=== PATIENT | male | born 1965 | race Caucasian/White ===

== ENCOUNTER 2017-01-28 10:14 | Outpatient (CLI) ==
[2015-10-31 02:28] VITALS: BMI 45.8
--- NOTE | 2017-01-28 11:06 | US ---
EXAM: Bilateral lower extremity venous Doppler History: Bilateral leg pain. Technique: Multiple sonographic images through the bilateral lower extremities were obtained. [place] r duplex Doppler was used to interrogate vascular flow. Findings: The bilateral common femoral, greater saphenous, profunda, fissural femoral, popliteal, p eroneal, posterior tibial and anterior tibial veins and a straight spontaneous flow with normal comp ression and normal augmentation. Impression: Sonographic evidence for deep venous thrombosis.
== END 2017-01-28 10:15 | disposition home or self-care (01) ==
LOC: RAD 10:14
PROVIDERS: ATTEND Surgery
DX: M79.605 Pain in left leg (principal); M79.604 Pain in right leg

== ENCOUNTER 2017-06-30 13:01 | Outpatient (CLI) ==
[2015-10-31 02:28] VITALS: BMI 45.8
[2017-06-30 13:09] LABS: BASOPHILS % (AUTO) 0.4 % (0.0-3.0); EOSINOPHILS # (AUTO) 0.3 K/ul (0.0-0.7); EOSINOPHILS % (AUTO) 3.2 % (0.0-7.0); HEMATOCRIT 46.2 % (42.0-52.0); HEMOGLOBIN 15.2 g/dl (14.0-18.0); IMMATURE GRANULOCYTE % (AUTO) 0.4 % (0.0-5.0); LYMPHOCYTES % (AUTO) 34.9 (10.0-50.0); MEAN CORPUSCULAR HEMOGLOBIN 28.8 pg (27.0-31.0); MEAN CORPUSCULAR HGB CONC 32.9 (31.8-35.4); MEAN CORPUSCULAR VOLUME 87.5 fl (80.0-94.0); MONOCYTES # (AUTO) 0.9 K/uL (0.4-2.0); MONOCYTES % (AUTO) 10.1 (0-10); NEUTROPHILS # (AUTO) 4.3 K/ul (2.0-6.9); PLATELET COUNT 231 10^3/uL (140-440); RED BLOOD COUNT 5.28 10^6/ul (4.70-6.10); WHITE BLOOD COUNT 8.45 K/ul (4.2-10.2)
[2017-06-30 13:41] LABS: ALBUMIN 3.6 g/dL (3.4-5.0); ALBUMIN/GLOBULIN RATIO 0.82; ANION GAP 12.9; BILIRUBIN,TOTAL 0.7 mg/dL (0.00-1.20); BUN/CREATININE RATIO 16.66; CALCIUM 9.5 mg/dL (8.2-10.2); CHOL/HDL RATIO 6.8 (4.5-6.4); CREATININE 0.84 mg/dL (0.60-1.10); POTASSIUM 3.9 mmol/L (3.5-5.1)
== END 2017-06-30 13:02 | disposition home or self-care (01) ==
LOC: LAB 13:01
PROVIDERS: ATTEND Emergency Medicine
DX: G47.33 Obstructive sleep apnea (adult) (pediatric) (principal); J44.1 Chronic obstructive pulmonary disease with (acute) exacerbation; F32.9 Major depressive disorder, single episode, unspecified; J06.9 Acute upper respiratory infection, unspecified; E66.9 Obesity, unspecified; Z68.35 Body mass index [BMI] 35.0-35.9, adult
CPT/HCPCS: 36415; 80053; 80061; 84443; 85025; 87651; 87880

== ENCOUNTER 2017-07-07 11:59 | Outpatient (CLI) ==
[2015-10-31 02:28] VITALS: BMI 45.8
--- NOTE | 2017-07-07 13:22 | DI ---
EXAM: Lumbar spine three view HISTORY: Lumbar stenosis COMPARISON: 05/03/2012 TECHNIQUE: Three views lumbar spine were performed FINDINGS: The sacroiliac joints intact. Sacral arcuate intact. Vertebral bodies normal height. No fracture. No subluxation. Multilevel marginal osteophyte formation. Multilevel intervertebral dis c space narrowing with moderate intervertebral disc is narrowing of L5 - S1. Multilevel facet arthro sis. Partial lumbarization S1. IMPRESSION: Chronic discogenic degenerative disease and facet arthrosis.
--- NOTE | 2017-07-07 21:22 | MRI ---
EXAM: MRI lumbar spine without IV contrast. DATE: 07 July 2017. HISTORY: Lumbar spinal stenosis and degenerative disc disease. TECHNIQUE: Sagittal and axial T1W and T2W sequences of the lumbar spine along with sagittal IR and c oronal T2W sequences were obtained using 1.2 [place] magnet. No IV contrast. COMPARISON: LS spine series 07 July 2017. MRI L-spine [address] abdomen/pelvis 2015. FINDINGS: There are five [id number] lumbar vertebra. No lumbar scoliosis is evident. A 2 mm a nterior subluxation of S1 relative to L5 is noted. No other subluxation, acute fracture, osseous mal ignancy, or pars interarticularis defect is demonstrated. Lumbar vertebra are normal in height. Bon e marrow signal is overall normal. T2W/T1W bright, 8.2 mm focus in the L3 body and similar 11 mm foc us in the L4 body are likely benign hemangiomas. Tiny, chronic Schmorl's nodes are revealed at T11, T12, L1, and L3. Disc desiccation and moderate disc space narrowing seen at L5-S1. No acute sacral fracture or stress reaction is evident. SI joints are unremarkable. Conus medullaris terminates at L1. No cord edema, syrinx, myelomalacia, or neoplasm is demonstrated. No retroperitoneal lymphadenopathy, paraspinal mass, or aortic aneurysm is detected. Psoas muscles a re normal. Mild bilateral posterior paraspinal muscle atrophy is seen inferiorly. Right lobe liver is greater than 19 cm in length, without distinct focal mass. Visible portion of the spleen measures greater than 15 cm in length. No adrenal or right renal lesion is seen. A prominent left extrarenal pelvis is suspected. The kidneys and other solid organs of the abdomen are not optimally visualized due to breathing motion artifacts. Segmental analysis: T11-12: Normal. T12-L1: Normal. L1-2: Normal. L2-3: Normal. L3-4: Minor left foraminal narrowing is due to minor facet arthropathy. No central canal stenosis. L4-5: Normal. L5-S1: Minimal anterior subluxation of L5, small concentric disc bulge, bilateral post lateral spond ylotic ridges at the L5 inferior endplate, and minor facet arthropathy cause moderate bilateral bon inal stenoses. Each L5 nerve root contacts disc bulges / osteophytes near the lateral margin of the foramen. IMPRESSIONS: 1. L-spine minor facet arthropathy and DDD similar to April 2012. 2. Moderate bilateral foraminal stenoses and compromise of each L5 nerve root near the foramen - - m zohreh L5-S1 a likely level to be symptomatic. 3. No lumbar spine central canal stenosis. 4. Benign hemangiomas in L3 and L4 vertebra. 5. T - L-spine small, chronic Schmorl's nodes. 6. Mild hepatosplenomegaly - etiology uncertain. 7. Prominent left extrarenal pelvis (benign).
== END 2017-07-07 12:00 | disposition home or self-care (01) ==
LOC: RAD 11:59
PROVIDERS: ATTEND Pain Medicine Interventional Pain Medicine
DX: M48.061 Spinal stenosis, lumbar region without neurogenic claudication (principal); M48.07 Spinal stenosis, lumbosacral region; M51.36 Other intervertebral disc degeneration, lumbar region; M51.37 Other intervertebral disc degeneration, lumbosacral region

== ENCOUNTER 2017-08-09 09:56 | Inpatient (IN) ==
[2017-08-09] MEDS: XOPENEX 1.25 MG NEB SCH ×2 (11:10→16:44)
[2017-08-09 11:19] VITALS: BMI 51.0
[2017-08-09] MEDS: ROCEPHIN 1 GM in SODIUM CHLORIDE 50 ML IV SCH (12:15)
[2017-08-09] MEDS: SODIUM CHLORIDE 1,000 ML IV SCH (12:15)
[2017-08-09] MEDS: ZITHROMAX PO SCH (12:16)
[2017-08-09] MEDS: TAMIFLU PO SCH (12:17)
[2017-08-09] MEDS: LOVENOX SUBCUT SCH (12:27)
[2017-08-09] MEDS ORDERED: ZOFRAN 4 MG/2 ML ONE (12:47)
[2017-08-09] MEDS ORDERED: PROTONIX IV ONE (12:47)
[2017-08-09] MEDS: ZOFRAN 4 MG/2 ML IVP PRN (12:50)
[2017-08-09] MEDS: PROTONIX IV IVP SCH (12:52)
--- NOTE | 2017-08-09 12:53 | CT ---
Exam: CT of the chest without intravenous contrast. Comparison: Chest x-ray performed on 01/12/2014. CT chest performed 04/21/2013. Reason for exam: Short of breath. FINDINGS: Incidental note of some mild soft tissue asymmetry in the partially imaged upper airway on axial image #1. Image interpretation is limited by the lack of intravenous contrast administration. Patchy ground-glass is seen in the left apex. There is a 4.5 mm nodule in the right lower lobe on axial image number 43. No pleural effusion, or f ocal consolidation is seen in the lung bases. There is no obvious pneumothorax. Nonspecific prominence of the mediastinal lymph nodes measuring up to 2.3 cm. Patchy ground-glass and tree in bud opacities are seen in the right upper lobe. Degenerative disease is seen in the thoracic spine. No suspicious appearing osteoblastic or osteolytic lesions. Impression: 1. Patchy ground-glass and tree in bud opacities are seen in the right upper and left upper lobes. Imaging findings are most consistent with inflammation or early infection. Repeat imaging is recomme nded to document resolution. 2. 4.5 mm nodule in the right lower lobe. Recommend 6-month follow-up CT to document stability. 3. Nonspecific enlargement of the mediastinal lymph nodes. 4. Incidental note of soft tissue asymmetry in the partially imaged upper airway on axial image #1. If clinical concern exists, further evaluation may be performed.
[2017-08-09] MEDS: SOLU-MEDROL 125 MG IVP SCH ×2 (13:00→20:57)
[2017-08-09] MEDS ORDERED: PERCOCET 10-325 PO PRN (14:59)
[2017-08-09] MEDS ORDERED: NON-FORMULARY MEDICATION (Hydroxyzine Hcl [Hydroxyzine Hcl] 50 MG) PO PRN (14:59)
[2017-08-09] MEDS ORDERED: ATARAX PO PRN (15:13)
[2017-08-09] MEDS: NORCO 10-325 PO PRN (16:26)
[2017-08-09] MEDS: DALIRESP PO SCH (16:28)
[2017-08-09] MEDS: LIPITOR PO SCH (16:29)
[2017-08-09] MEDS: ZANTAC PO SCH (16:30)
[2017-08-09] MEDS: SINGULAIR PO SCH (16:30)
[2017-08-09] MEDS ORDERED: TORADOL IVP STA (16:56)
[2017-08-09] MEDS: SYMBICORT 160-4.5 MCG INHALER IH SCH (20:57)
[2017-08-09] MEDS: NEURONTIN PO SCH (20:57)
[2017-08-09] MEDS: REQUIP PO SCH (20:58)
[2017-08-09] MEDS ORDERED: ROPINIROLE HCL 2 MG PO SCH (21:00)
[2017-08-10] MEDS: XOPENEX 1.25 MG NEB SCH ×5 (01:35→23:01)
[2017-08-10] MEDS: SODIUM CHLORIDE 1,000 ML IV SCH ×2 (03:23→16:07)
[2017-08-10] MEDS: TYLENOL PO PRN ×2 (03:29→19:22)
[2017-08-10] MEDS: ZANTAC PO SCH ×2 (05:33→16:08)
[2017-08-10] MEDS: SOLU-MEDROL 125 MG IVP SCH ×3 (05:33→20:14)
[2017-08-10] MEDS: PROTONIX IV IVP SCH (09:21)
[2017-08-10] MEDS: ZOFRAN 4 MG/2 ML IVP PRN (09:23)
[2017-08-10] MEDS: ZITHROMAX PO SCH (09:25)
[2017-08-10] MEDS: NON-FORMULARY MEDICATION (Umeclidinium Bromide [Incruse Ellipta] 62.5 MCG) IH SCH (09:26)
[2017-08-10] MEDS: TAMIFLU PO SCH (09:27)
[2017-08-10] MEDS: LOVENOX SUBCUT SCH (09:28)
[2017-08-10] MEDS: SYMBICORT 160-4.5 MCG INHALER IH SCH ×2 (09:38→20:14)
[2017-08-10] MEDS: DALIRESP PO SCH (09:38)
[2017-08-10] MEDS: LIPITOR PO SCH (09:38)
[2017-08-10] MEDS: SINGULAIR PO SCH (09:38)
[2017-08-10] MEDS: ROCEPHIN 1 GM in SODIUM CHLORIDE 50 ML IV SCH (09:39)
[2017-08-10] MEDS: NEURONTIN PO SCH (20:14)
[2017-08-10] MEDS: REQUIP PO SCH (20:14)
[2017-08-10] MEDS: NORCO 10-325 PO PRN (23:32)
[2017-08-11] MEDS: SODIUM CHLORIDE 1,000 ML IV SCH ×2 (04:48→18:35)
[2017-08-11] MEDS: SOLU-MEDROL 125 MG IVP SCH ×3 (04:49→21:10)
[2017-08-11] MEDS: XOPENEX 1.25 MG NEB SCH ×4 (04:50→23:30)
[2017-08-11] MEDS: ZANTAC PO SCH ×2 (05:46→16:51)
[2017-08-11] MEDS: PROTONIX IV IVP SCH (08:46)
[2017-08-11] MEDS: ROCEPHIN 1 GM in SODIUM CHLORIDE 50 ML IV SCH (10:30)
[2017-08-11] MEDS: SYMBICORT 160-4.5 MCG INHALER IH SCH ×2 (10:31→21:10)
[2017-08-11] MEDS: LOVENOX SUBCUT SCH (10:31)
[2017-08-11] MEDS: LIPITOR PO SCH (10:32)
[2017-08-11] MEDS: SINGULAIR PO SCH (10:32)
[2017-08-11] MEDS: DALIRESP PO SCH (10:32)
[2017-08-11] MEDS: TAMIFLU PO SCH (10:32)
[2017-08-11] MEDS: ZITHROMAX PO SCH (10:33)
[2017-08-11] MEDS: NON-FORMULARY MEDICATION (Umeclidinium Bromide [Incruse Ellipta] 62.5 MCG) IH SCH (10:33)
[2017-08-11] MEDS: TYLENOL PO PRN ×2 (14:58→21:10)
[2017-08-11] MEDS: ATIVAN PO SCH (21:10)
[2017-08-11] MEDS: REQUIP PO SCH (21:11)
[2017-08-11] MEDS: NEURONTIN PO SCH (21:11)
[2017-08-12] MEDS: XOPENEX 1.25 MG NEB SCH ×4 (05:05→22:50)
[2017-08-12] MEDS: SOLU-MEDROL 125 MG IVP SCH ×3 (06:00→21:26)
[2017-08-12] MEDS: ZANTAC PO SCH ×2 (06:00→16:49)
[2017-08-12] MEDS: SODIUM CHLORIDE 1,000 ML IV SCH (08:43)
[2017-08-12] MEDS: NON-FORMULARY MEDICATION (Umeclidinium Bromide [Incruse Ellipta] 62.5 MCG) IH SCH (08:45)
[2017-08-12] MEDS: SYMBICORT 160-4.5 MCG INHALER IH SCH ×2 (08:45→21:25)
[2017-08-12] MEDS: ROCEPHIN 1 GM in SODIUM CHLORIDE 50 ML IV SCH (08:45)
[2017-08-12] MEDS: LIPITOR PO SCH (08:46)
[2017-08-12] MEDS: LOVENOX SUBCUT SCH (08:46)
[2017-08-12] MEDS: SINGULAIR PO SCH (08:47)
[2017-08-12] MEDS: DALIRESP PO SCH (08:47)
[2017-08-12] MEDS: TAMIFLU PO SCH (08:47)
[2017-08-12] MEDS: TYLENOL PO PRN (08:48)
[2017-08-12] MEDS: PROTONIX IV IVP SCH (08:55)
--- NOTE | 2017-08-12 16:44 | DI ---
Exam: Three x-rays of the chest. Comparison: CT chest performed 08/09/2017. Reason for exam: Wheezing, shortness of breath. FINDINGS: No pneumothorax, pleural effusion, or focal consolidation. The cardiac silhouette is unch anged. There are increased central and small airway lung markings seen best on the lateral view. The imaged osseous structures appear grossly unremarkable with degenerative disease in the thoracic spin e. Impression: Increased central and small airway markings can be seen with bronchitis, bronchiolitis, and airway in fection. No focal airspace consolidation is seen.
[2017-08-12] MEDS ORDERED: CATAPRES PO STA (20:35)
[2017-08-12] MEDS: NEURONTIN PO SCH (21:25)
[2017-08-12] MEDS: REQUIP PO SCH (21:25)
[2017-08-12] MEDS: ATIVAN PO SCH (21:25)
[2017-08-12] MEDS ORDERED: LASIX IVP STA (22:59)
[2017-08-13] MEDS: SODIUM CHLORIDE 1,000 ML IV SCH (00:08)
[2017-08-13] MEDS: XOPENEX 1.25 MG NEB SCH ×4 (05:12→23:25)
[2017-08-13] MEDS: SOLU-MEDROL 125 MG IVP SCH ×3 (06:02→20:44)
[2017-08-13] MEDS: ZANTAC PO SCH ×2 (06:02→17:25)
[2017-08-13] MEDS: SYMBICORT 160-4.5 MCG INHALER IH SCH ×2 (08:17→20:44)
[2017-08-13] MEDS: LOVENOX SUBCUT SCH (08:17)
[2017-08-13] MEDS: NON-FORMULARY MEDICATION (Umeclidinium Bromide [Incruse Ellipta] 62.5 MCG) IH SCH (08:17)
[2017-08-13] MEDS: LIPITOR PO SCH (08:18)
[2017-08-13] MEDS: DALIRESP PO SCH (08:18)
[2017-08-13] MEDS: PROTONIX IV IVP SCH (08:18)
[2017-08-13] MEDS: SINGULAIR PO SCH (08:18)
[2017-08-13] MEDS: TAMIFLU PO SCH (08:18)
[2017-08-13] MEDS: ROCEPHIN 1 GM in SODIUM CHLORIDE 50 ML IV SCH (09:33)
[2017-08-13] MEDS: ZESTRIL PO SCH (09:33)
[2017-08-13] MEDS: ZITHROMAX PO SCH (13:25)
--- NOTE | 2017-08-13 15:22 | PN ---
DATE OF SERVICE: 08/10/17 SUBJECTIVE: The patient was admitted from the office yesterday with COPD exacerbation, pneumonia and influenza A positive. Coughing and congestion is better. Shortness of breath is improved but still has shortness of breath with minimal exertion. Complaining of left upper chest pain, sharp type. REVIEW OF SYSTEMS: CONSTITUTIONAL: No fever, no chills. HEENT: Normal. ENDOCRINE: No weight gain, no weight loss. CVS: No angina symptoms. No CHF symptoms. No palpitations. No atypical chest pain for CAD. No shortness of breath. No PND, no orthopnea. RESPIRATORY: No cough, no hemoptysis. GI: No nausea, no vomiting. No abdominal pain. : No hematuria. No polyuria. MUSCULOSKELETAL: No joint swelling. PSYCHIATRIC: Not anxious. No depression. No suicidal thoughts. No homicidal thoughts. SKIN: Intact. No rash. PHYSICAL EXAMINATION: V/S: Blood pressure 153/84, respiratory rate 23, heart rate 84, temperature 97.9 with saturation 91 on CPAP. HEENT: Normocephalic, atraumatic. Mucosa dry. Pallor positive. No icterus. NECK: Supple. No JVD, no carotid bruit. No lymphadenopathy. LUNGS: Decreased and basilar crackles. Clear to auscultation. No rales or rhonchi. HEART: S1, S2 normal. No S3. No murmur, gallop or regurgitation. ABDOMEN: Soft, nontender. Bowel sounds active. No rigidity. No rebound or guarding. No CVA tenderness. EXTREMITIES: No pedal edema. No clubbing or cyanosis MUSCULOSKELETAL: No joint swelling. NEUROLOGIC: Awake, alert, oriented times three. No focal deficit. LYMPHATIC: No lymph nodes palpable. SKIN: Intact. LABS: WBC 4.57, hgb 14.6, hct 43.3, plt count 166, sodium 143, potassium 4.2, chloride 106, bicarb 23, BUN 14, creatinine 0.70 and glucose 154. Three sets are cardiac enzymes are negative. ASSESSMENT: 1. COPD exacerbation secondary to the Pneumonia 2. Influenza A 3. History of COPD 4. Hypertension 5. Dyslipidemia 6. Osteoarthritis 7. DJD spine 8. Anxiety disorder 9. Sleep apnea on CPAP PLAN: 1. Continue the Azithromycin and Rocephin 2. Lovenox for the DVT prophylaxis 3. Tamiflu 4. IV fluids 5. Daily I&O's TIME SPENT: More than 35 minutes MTDD
[2017-08-13] MEDS: ATIVAN PO SCH (20:44)
[2017-08-13] MEDS: NEURONTIN PO SCH (20:44)
[2017-08-13] MEDS: REQUIP PO SCH (20:44)
[2017-08-14] MEDS: SOLU-MEDROL 125 MG IVP SCH ×3 (04:28→22:43)
[2017-08-14] MEDS: XOPENEX 1.25 MG NEB SCH ×3 (04:30→17:07)
[2017-08-14] MEDS: ZANTAC PO SCH ×2 (05:46→17:16)
[2017-08-14] MEDS: NON-FORMULARY MEDICATION (Umeclidinium Bromide [Incruse Ellipta] 62.5 MCG) IH SCH (09:31)
[2017-08-14] MEDS: TAMIFLU PO SCH (09:32)
[2017-08-14] MEDS: SINGULAIR PO SCH (09:32)
[2017-08-14] MEDS: ZESTRIL PO SCH (09:32)
[2017-08-14] MEDS: LIPITOR PO SCH (09:32)
[2017-08-14] MEDS: ZITHROMAX PO SCH (09:33)
[2017-08-14] MEDS: SYMBICORT 160-4.5 MCG INHALER IH SCH ×2 (09:35→22:44)
[2017-08-14] MEDS: DALIRESP PO SCH (09:35)
[2017-08-14] MEDS: LOVENOX SUBCUT SCH (09:36)
[2017-08-14] MEDS: PROTONIX IV IVP SCH (09:40)
[2017-08-14] MEDS: ROCEPHIN 1 GM in SODIUM CHLORIDE 50 ML IV SCH (09:43)
[2017-08-14 17:30] VITALS: BP 148/91; TEMP 98.1
[2017-08-14] MEDS ORDERED: PNEUMOVAX 23 IM ONE (19:50)
[2017-08-14] MEDS ORDERED: PNEUMOVAX 23 ONE (19:58)
[2017-08-14] MEDS: NEURONTIN PO SCH (22:43)
[2017-08-14] MEDS: REQUIP PO SCH (22:43)
[2017-08-14] MEDS: ATIVAN PO SCH (22:43)
--- NOTE | 2017-08-18 09:36 | DS ---
DATE OF SERVICE: 08/14/17 FINAL DIAGNOSIS: 1. COPD exacerbation secondary to the community acquired pneumonia. 2. Hypoxemic respiratory failure 3. COPD exacerbation secondary to Flu A positive 4. Hypertension 5. Dyslipidemia 6. COPD oxygen dependant 7. Obstructive sleep apnea on CPAP 8. Osteoarthritis 9. DJD spine 10.Depression 11.Anxiety 12.Substance use disorder uses the medical marijuana DISCHARGE INSTRUCTIONS: Discharge the patient home. Continue the rest of the home medications. MEDICATIONS AT DISCHARGE: Albuterol Lipitor Symbicort Neurontin Hydrocodone Hydroxyzin Singulair Zantac Daliresp Ropinirole NEW PRESCRIPTIONS: Keflex 500mg twice a day for 5 days Prednisone 10mg twice a day for 5 days DIET INSTRUCTIONS: Cardiac and Healthy ACTIVITY: As tolerated SMOKING: Former Smoker DISEASE SPECIFIC EDUCATION: COPD Needing for the pneumonia vaccination which was given today COPD oxygen and oxygen dependency been discussed Medication side effects Antibiotic use and diarrhea been discussed, verbalized understanding. HOSPITAL COURSE: Haresh Gaitan who is a 51 year old male came to the office complaining of shortness of breath, cough, congestion, fever and chills and body aches. Admitted from the [facility] to the hospital. The patient was hypoxic with a 90% on the room air. ABG done in the hospital which showed the pH 7.492, pCO2 29., pO2 58, WBC was normal, chemistry was normal. Serology Flu A positive. CT chest showed the pneumonia multilobular. At that time started on the antibiotic Rocephin and Azithromycin and started on the Tamiflu, steroids and breathing treatments. Gradually he started feeling better. Up and about. Still coughing and was able to get some phlegm and did not have any fever. Saturations were gradually getting improved. On room air the patient's saturation was up to 94 to 95%. Repeat chest x-ray was showing the betterment of the pneumonia. The patient wheezing and coughing has improved with antibiotics and steroids. As patient was feeling better and up and about walking, less of short of breath he is being discharged home. TIME SPENT: MORE THAN 65 MINUTES MTDD
== END 2017-08-14 20:30 | disposition home or self-care (01) | DRG 193 ==
LOC: SCU 09:56
PROVIDERS: ADMIT Emergency Medicine; ATTEND Emergency Medicine
DX: J18.9 Pneumonia, unspecified organism (principal); J96.01 Acute respiratory failure with hypoxia; J44.1 Chronic obstructive pulmonary disease with (acute) exacerbation; J10.1 Influenza due to other identified influenza virus with other respiratory manifestations; I10 Essential (primary) hypertension; E78.5 Hyperlipidemia, unspecified; G47.33 Obstructive sleep apnea (adult) (pediatric); M19.90 Unspecified osteoarthritis, unspecified site; M47.9 Spondylosis, unspecified; F41.8 Other specified anxiety disorders; F12.90 Cannabis use, unspecified, uncomplicated; Z99.81 Dependence on supplemental oxygen; Z79.899 Other long term (current) drug therapy
CPT/HCPCS: 36415; 80053; 82550; 82553; 82803; 84484; 85007; 85025; 87070; 87493; 87502; 93005; 93010; 94640; 97802

== ENCOUNTER 2017-08-30 11:21 | Outpatient (CLI) | END 2017-08-30 11:22 | disposition home or self-care (01) | LOC: RHC-LAB 11:21 | PROVIDERS: ATTEND Emergency Medicine | DX: R73.9 Hyperglycemia, unspecified (principal) | CPT/HCPCS: 36415; 83037 ==

== ENCOUNTER 2017-09-09 10:04 | Inpatient (IN) | payer OTHER ==
[2017-09-09 10:24] VITALS: BMI 45.6
[2017-09-09] MEDS: SODIUM CHLORIDE 1,000 ML IV SCH (10:37)
[2017-09-09] MEDS ORDERED: PHENERGAN WITH CODEINE 6.25/10 MG/5 ML PO PRN (10:43)
[2017-09-09] MEDS ORDERED: LASIX IVP STA (10:43)
[2017-09-09] MEDS: DUONEB NEB SCH ×3 (10:47→22:43)
[2017-09-09] MEDS: ROCEPHIN 1 GM in SODIUM CHLORIDE 50 ML IV SCH (10:57)
[2017-09-09] MEDS ORDERED: ALBUTEROL 0.083% NEB NEB PRN (11:50)
[2017-09-09] MEDS ORDERED: NORCO 10-325 PO PRN (11:50)
[2017-09-09] MEDS ORDERED: NON-FORMULARY MEDICATION (Hydroxyzine Hcl [Hydroxyzine Hcl] 50 MG) PO PRN (11:50)
[2017-09-09] MEDS ORDERED: PROAIR HFA IH PRN (11:50)
[2017-09-09] MEDS ORDERED: ATARAX PO PRN ×2 (13:14→13:30)
[2017-09-09] MEDS: SOLU-MEDROL 125 MG IVP SCH ×2 (14:44→20:51)
--- NOTE | 2017-09-09 15:09 | CT ---
EXAM: CT THORAX HISTORY: Shortness of breath. TECHNIQUE: CT thorax without intravenous contrast. Multiplanar images presented. COMPARISON: 08/09/2017 and 04/22/2013 FINDINGS: Normal heart size. No pericardial effusion. Thoracic aorta is within normal limits. There are mult iple mediastinal and hilar lymph nodes becoming conglomerate in the subcarinal region and prominent e lsewhere. The discretely delineated nodes measure up to about 9 mm short axis. Similar picture seen on the older comparison exam of 2012 although the lymph nodes have become slightly larger. Stable 4 mm nodule in the right lower lobe since at least 2012. No acute infiltrates or vascular con gestion. No pleural fluid. The bones reveal osteophytic spurring of the thoracic spine. IMPRESSION: 1. No acute infiltrates. 2. Prominent mediastinal and hilar lymph nodes may be reactive. Less likely malignant.
[2017-09-09] MEDS: ZANTAC PO SCH (16:55)
[2017-09-09] MEDS: REQUIP PO SCH (20:50)
[2017-09-09] MEDS: NEURONTIN PO SCH (20:51)
[2017-09-09] MEDS ORDERED: SYMBICORT 160-4.5 MCG INHALER IH SCH (21:00)
[2017-09-09] MEDS ORDERED: ROPINIROLE HCL 2 MG PO SCH (21:00)
[2017-09-10] MEDS: DUONEB NEB SCH ×3 (04:34→20:40)
[2017-09-10] MEDS: SOLU-MEDROL 125 MG IVP SCH ×3 (05:34→20:47)
[2017-09-10] MEDS: ZANTAC PO SCH ×2 (05:34→17:47)
[2017-09-10] MEDS: SINGULAIR PO SCH (09:27)
[2017-09-10] MEDS: LOVENOX SUBCUT SCH (09:27)
[2017-09-10] MEDS: DALIRESP PO SCH (09:27)
[2017-09-10] MEDS: NON-FORMULARY MEDICATION (Umeclidinium Bromide [Incruse Ellipta] 62.5 MCG) IH SCH (09:27)
[2017-09-10] MEDS: ROCEPHIN 1 GM in SODIUM CHLORIDE 50 ML IV SCH (09:27)
[2017-09-10] MEDS: LIPITOR PO SCH (09:27)
[2017-09-10] MEDS: HUMULIN R SUBCUT PRN ×3 (11:18→20:41)
[2017-09-10] MEDS: REQUIP PO SCH (20:41)
[2017-09-10] MEDS: NEURONTIN PO SCH (20:41)
[2017-09-11] MEDS: DUONEB NEB SCH ×4 (05:18→21:34)
[2017-09-11] MEDS: ZANTAC PO SCH ×2 (06:04→16:53)
[2017-09-11] MEDS: SOLU-MEDROL 125 MG IM SCH ×3 (06:23→20:55)
[2017-09-11] MEDS: HUMULIN R SUBCUT PRN ×4 (06:41→20:56)
[2017-09-11] MEDS: NON-FORMULARY MEDICATION (Umeclidinium Bromide [Incruse Ellipta] 62.5 MCG) IH SCH (09:45)
[2017-09-11] MEDS: SINGULAIR PO SCH (09:47)
[2017-09-11] MEDS: DALIRESP PO SCH (09:48)
[2017-09-11] MEDS: LIPITOR PO SCH (09:48)
[2017-09-11] MEDS: LOVENOX SUBCUT SCH (09:53)
[2017-09-11] MEDS: ROCEPHIN 1 GM in SODIUM CHLORIDE 50 ML IV SCH (10:04)
[2017-09-11] MEDS: SODIUM CHLORIDE 1,000 ML IV SCH (10:25)
[2017-09-11] MEDS: NEURONTIN PO SCH (20:56)
[2017-09-11] MEDS: REQUIP PO SCH (20:56)
[2017-09-12] MEDS: DUONEB NEB SCH ×4 (05:09→20:03)
[2017-09-12] MEDS: SOLU-MEDROL 125 MG IM SCH (06:15)
[2017-09-12] MEDS ORDERED: SOLU-MEDROL 125 MG IVP SCH (06:17)
[2017-09-12] MEDS ORDERED: SOLU-MEDROL 125 MG IVP STA (06:18)
[2017-09-12] MEDS: ZANTAC PO SCH ×2 (06:32→17:16)
[2017-09-12] MEDS: HUMULIN R SUBCUT PRN ×4 (06:32→20:20)
[2017-09-12] MEDS: LOVENOX SUBCUT SCH (08:52)
[2017-09-12] MEDS: SINGULAIR PO SCH (08:52)
[2017-09-12] MEDS: LIPITOR PO SCH (08:52)
[2017-09-12] MEDS: ROCEPHIN 1 GM in SODIUM CHLORIDE 50 ML IV SCH (08:52)
[2017-09-12] MEDS: DALIRESP PO SCH (08:52)
[2017-09-12] MEDS: NON-FORMULARY MEDICATION (Umeclidinium Bromide [Incruse Ellipta] 62.5 MCG) IH SCH (08:52)
[2017-09-12] MEDS: SODIUM CHLORIDE 1,000 ML IV SCH ×3 (10:00→12:37)
[2017-09-12] MEDS: SOLU-MEDROL 125 MG IVP SCH ×2 (13:07→20:20)
--- NOTE | 2017-09-12 15:23 | DI ---
EXAM: PA and lateral views the chest HISTORY: Pneumonia COMPARISON: 08/12/2017 FINDINGS: No consolidation, pleural effusion or pneumothorax is seen. The cardiomediastinal silhouette is within normal limits. There is a remote fracture of the right fourth posterior rib. IMPRESSION: No acute cardiopulmonary findings.
[2017-09-12] MEDS: NEURONTIN PO SCH (20:20)
[2017-09-12] MEDS: REQUIP PO SCH (20:20)
[2017-09-13] MEDS: DUONEB NEB SCH ×3 (05:15→14:13)
[2017-09-13] MEDS: HUMULIN R SUBCUT PRN ×2 (05:30→11:54)
[2017-09-13] MEDS: SOLU-MEDROL 125 MG IVP SCH ×2 (05:30→12:58)
[2017-09-13] MEDS: ZANTAC PO SCH (05:30)
[2017-09-13] MEDS: DALIRESP PO SCH (08:07)
[2017-09-13] MEDS: LIPITOR PO SCH (08:07)
[2017-09-13] MEDS: SINGULAIR PO SCH (08:07)
[2017-09-13] MEDS: ROCEPHIN 1 GM in SODIUM CHLORIDE 50 ML IV SCH (08:08)
[2017-09-13] MEDS: NON-FORMULARY MEDICATION (Umeclidinium Bromide [Incruse Ellipta] 62.5 MCG) IH SCH (08:08)
[2017-09-13] MEDS: LOVENOX SUBCUT SCH (08:09)
[2017-09-13 18:21] VITALS: BP 154/86; TEMP 97.6
--- NOTE | 2017-10-07 15:29 | PN ---
DATE OF SERVICE: 09/10/17 SUBJECTIVE: The patient was admitted from the office for the COPD exacerbation and pneumonia. Still having cough, congestion, shortness of breath. The patient wears the CPAP at night time which he is using right now. REVIEW OF SYSTEMS: CONSTITUTIONAL: No fever, no chills. HEENT: Normal. ENDOCRINE: No weight gain, no weight loss. CVS: No angina symptoms. No CHF symptoms. No palpitations. No atypical chest pain for CAD. No shortness of breath. No PND, no orthopnea. RESPIRATORY: No cough, no hemoptysis. GI: No nausea, no vomiting. No abdominal pain. : No hematuria. No polyuria. MUSCULOSKELETAL: No joint swelling. PSYCHIATRIC: Not anxious. No depression. No suicidal thoughts. No homicidal thoughts. SKIN: Intact. No rash. PHYSICAL EXAMINATION: V/S: Blood pressure 150/71, heart rate 82, temperature 97 with saturation is 92 on CPAP and respiratory rate 18. GENERAL: Obese man laying in a bed and not in any distress. HEENT: Normocephalic, atraumatic. Mucosa dry. Pallor positive. NECK: Supple. No JVD, no carotid bruit. No lymphadenopathy. LUNGS: Decreased and basilar crackles. Mild expiratory wheeze. No rales or rhonchi. HEART: S1, S2 normal. No S3. No murmur, gallop or regurgitation. ABDOMEN: Soft, nontender. Bowel sounds active. No rigidity. No rebound or guarding. No CVA tenderness. EXTREMITIES: No pedal edema. No clubbing or cyanosis MUSCULOSKELETAL: No joint swelling. NEUROLOGIC: Awake, alert, oriented times three. No focal deficit. LYMPHATIC: No lymph nodes palpable. SKIN: Intact. LABS: WBC 13.79, hgb 15.4, hct 46.3, plt count 251, sodium 141, potassium 4.1, chloride 109, bicarb 19, BUN 9, creatinine 0.79, glucose 135. ABG showed the pH 7.469, pCO2 31.9, pO2 63, serology is negative for the Flu. CAT scan of the chest does show bibasilar infiltrates, pneumonia. ASSESSMENT: 1. COPD exacerbation secondary to the pneumonia and bronchitis 2. COPD 3. Hypertension 4. Dyslipidemia 5. Sleep apnea on CPAP 6. Obesity PLAN: 1. Rocephin 2. Azithromycin 3. Solu-Medrol 4. Daily I&O's TIME SPENT: More than 35 minutes MTDD
--- NOTE | 2017-10-07 15:46 | PN ---
DATE OF SERVICE: 09/11/17 SUBJECTIVE: The patient was admitted with COPD exacerbation and bilateral basilar pneumonia. Shortness of breath is a lot better but still coughing and congestion with exertion he is getting short of breath. REVIEW OF SYSTEMS: CONSTITUTIONAL: No fever, no chills. HEENT: Normal. ENDOCRINE: No weight gain, no weight loss. CVS: No angina symptoms. No CHF symptoms. No palpitations. No atypical chest pain for CAD. No shortness of breath. No PND, no orthopnea. RESPIRATORY: Cough and congestion, no hemoptysis. GI: No nausea, no vomiting. No abdominal pain. : No hematuria. No polyuria. MUSCULOSKELETAL: No joint swelling. PSYCHIATRIC: Not anxious. No depression. No suicidal thoughts. No homicidal thoughts. SKIN: Intact. No rash. PHYSICAL EXAMINATION: V/S: Blood pressure 162/84, respiratory rate 21, heart rate 75, temperature 98.5 with saturation 94 on the room air. GENERAL: Obese man laying in a bed. HEENT: Normocephalic, atraumatic. Mucosa dry. Pallor positive. No icterus. NECK: Supple. No JVD, no carotid bruit. No lymphadenopathy. LUNGS: Bilateral basilar crackles and expiratory wheeze is present. Clear to auscultation. No rales or rhonchi. HEART: S1, S2 normal. No S3. No murmur, gallop or regurgitation. ABDOMEN: Soft, nontender. Bowel sounds active. No rigidity. No rebound or guarding. No CVA tenderness. EXTREMITIES: No pedal edema. No clubbing or cyanosis MUSCULOSKELETAL: No joint swelling. NEUROLOGIC: Awake, alert, oriented times three. No focal deficit. LYMPHATIC: No lymph nodes palpable. SKIN: Intact. LABS: WBC 21.51, hgb 15.3, hct 44.8, plt count 267, sodium 140, potassium 4.0, chloride 107, bicarb 19, BUN 21,. creatinine 0.80. U/A negative for the nitrates and leukocyte esterase. ASSESSMENT: 1. COPD exacerbation secondary to the bilateral basilar pneumonia 2. Shortness of breath secondary to the above 3. Leukocytosis secondary to the steroids 4. Sleep apnea on CPAP 5. History of syncope 6. Osteoarthritis 7. DJD spine 8. Depression 9. Anxiety, uses medical marijuana PLAN: 1. Continue the Rocephin 2. Phenergan with codeine 3. Lovenox 4. Solu-Medrol 125mg Q 8 hours 5. Daily I&O's TIME SPENT: More than 35 minutes MTDD
--- NOTE | 2017-10-08 10:59 | PN ---
DATE OF SERVICE: 09/12/17 SUBJECTIVE: Cough and congestion is better. He was admitted with COPD exacerbation and bilateral basilar pneumonia. He was able to walk in the corridor. He is still having some shortness of breath. He is coughing and was able to bring up some phlegm. REVIEW OF SYSTEMS: CONSTITUTIONAL: No fever, no chills. HEENT: Normal. ENDOCRINE: No weight gain, no weight loss. CVS: No angina symptoms. No CHF symptoms. No palpitations. No atypical chest pain for CAD. Shortness of breath. No PND, no orthopnea. RESPIRATORY: Cough and congestion, no hemoptysis. GI: No nausea, no vomiting. No abdominal pain. : No hematuria. No polyuria. MUSCULOSKELETAL: No joint swelling. PSYCHIATRIC: Not anxious. No depression. No suicidal thoughts. No homicidal thoughts. SKIN: Intact. No rash. PHYSICAL EXAMINATION: V/S: Blood pressure 148/85, respiratory rate 17, heart rate 53, temperature 97.6 , saturation 96 on BiPAP. Morbidly obese male. HEENT: Normocephalic, atraumatic. Mucosa dry. NECK: Supple. No JVD, no carotid bruit. No lymphadenopathy. LUNGS: Decreased and basilar crackles. Mild expiratory wheeze. No rales or rhonchi. HEART: S1, S2 normal. No S3. No murmur, gallop or regurgitation. ABDOMEN: Soft, nontender. Bowel sounds active. No rigidity. No rebound or guarding. No CVA tenderness. EXTREMITIES: No pedal edema. No clubbing or cyanosis MUSCULOSKELETAL: No joint swelling. NEUROLOGIC: Awake, alert, oriented times three. No focal deficit. LYMPHATIC: No lymph nodes palpable. SKIN: Intact. LABS: White count is 21.51, hemoglobin 15.3, hematocrit 44.8, platelet count 264, sodium 140, potassium 4.0, chloride 107, bicarb 19, BUN 21, creatinine 0.80 , glucose 192. ASSESSMENT: 1. CHRONIC OBSTRUCTIVE PULMONARY DISEASE EXACERBATION SECONDARY TO THE COMMUNITY ACQUIRED PNEUMONIA 2. SLEEP APNEA ON C-PAP 3. HYPERTENSION 4. DYSLIPIDEMIA 5. OSTEOARTHRITIS 6. DJD OF THE SPINE PLAN: 1. Continue the Rocephin and Azithromycin. 2. DuoNebs. 3. Out of bed to chair. 4. Activity as tolerated. 5. Solu-Medrol 125 every 8 hours. 6. Daily I & O's. 7. We will get a chest x-ray today. TIME SPENT: More than 35 minutes MTDMayelin
--- NOTE | 2017-10-08 11:19 | DS ---
DATE OF SERVICE: 09/13/17 FINAL DIAGNOSIS: 1. CHRONIC OBSTRUCTIVE PULMONARY DISEASE EXACERBATION SECONDARY TO BRONCHITIS 2. LEUKOCYTOSIS FROM THE STEROIDS 3. CHRONIC OBSTRUCTIVE PULMONARY DISEASE, OXYGEN DEPENDENT 4. HYPERTENSION 5. DYSLIPIDEMIA 6. HISTORY OF SYNCOPE 7. SLEEP APNEA ON C-PAP 8. GERD 9. DEPRESSION 10. ANXIETY 11. USES MEDICAL MARIJUANA 12. RESTLESS LEG SYNDROME PLAN: 1. Discharge the patient home. 2. Keflex 500 mg twice a day. 3. Prednisone twice a day. 4. Follow up in the [facility] on September 21, 2017. 5. Continue the rest of the home medications; Albuterol, Lipitor, Symbicort, Neurontin, Hydrocodone, Hydroxyzine, Singular, Prednisone, Zantac, Daliresp, Marijuana and Ropinirole. 6. Diet: Cardiac and healthy. 7. Activity: As much as tolerated. DISEASE SPECIFIC EDUCATION: About the COPD, need for the pneumonia vaccination, antibiotic use and diarrhea were discussed. HOSPITAL COURSE: Haresh Gaitan, who is a 51 year old male, came to the office complaining of cough, congestion, shortness of breath, diffuse wheezing. He was taking the extra breathing treatment and did not get better. In view of the patient's severe COPD, the patient was admitted to the hospital for IV antibiotics and the breathing treatments. CT of the chest done, which did show the inflammatory areas, but no solid pneumonia, but bilateral prominent mediastinal and hilar lymph nodes reactive. Less likely malignant. With the given history, the patient was started on the Rocephin and Azithromycin, Solu- Medrol 125 mg every 8 hours breathing treatments. Gradually started feeling better. The patient started using his C-PAP machine in the hospital for when he sleeps. Gradually he started getting up and about and walking. Shortness of breath was gradually getting better. He started getting a lot of yellow- green phlegm. With the given antibiotic treatment, he recuperated well. No complications. ABG's with the pH 7.469, PCO2 31.6, PO2 63. Serology was negative for flu. Urine was negative. White count went up to 21,000, most likely from the steroids. As the patient was doing good and did not have any complications, the patient is being discharged on 09/13/17. TIME SPENT: MORE THAN 65 MINUTES MTDD
== END 2017-09-13 16:12 | disposition home or self-care (01) | DRG 202 ==
LOC: MEDSURG B 10:04
PROVIDERS: ADMIT Emergency Medicine; ATTEND Emergency Medicine
DX: J20.9 Acute bronchitis, unspecified (principal); J44.1 Chronic obstructive pulmonary disease with (acute) exacerbation; J44.0 Chronic obstructive pulmonary disease with (acute) lower respiratory infection; Z68.42 Body mass index [BMI] 45.0-49.9, adult; R06.02 Shortness of breath; D72.829 Elevated white blood cell count, unspecified; I10 Essential (primary) hypertension; E66.01 Morbid (severe) obesity due to excess calories; E78.5 Hyperlipidemia, unspecified; F41.8 Other specified anxiety disorders; G47.30 Sleep apnea, unspecified; K21.9 Gastro-esophageal reflux disease without esophagitis; G25.81 Restless legs syndrome; M19.90 Unspecified osteoarthritis, unspecified site; Z87.898 Personal history of other specified conditions; Z79.899 Other long term (current) drug therapy; Z87.891 Personal history of nicotine dependence; Z99.81 Dependence on supplemental oxygen; Z99.89 Dependence on other enabling machines and devices
CPT/HCPCS: 36415; 80053; 81001; 82550; 82803; 82962; 83880; 84484; 85025; 87070; 87086; 87502; 93005; 93010; 94640

== ENCOUNTER 2018-07-12 15:12 | Outpatient (CLI) | END 2018-07-12 15:13 | disposition home or self-care (01) | LOC: RHC-LAB 15:12 | PROVIDERS: ATTEND Nurse Practitioner Family | DX: J44.9 Chronic obstructive pulmonary disease, unspecified (principal); E78.5 Hyperlipidemia, unspecified; F32.9 Major depressive disorder, single episode, unspecified; Z12.5 Encounter for screening for malignant neoplasm of prostate | CPT/HCPCS: 36415; 80053; 80061; 84443; 85025 ==